=== PATIENT | female | born 1945 | race Caucasian/White ===

== ENCOUNTER → 2017-10-30 | Outpatient (CLI) | payer OTHER ==
[~2017-10-30] MED LIST: CELEBREX 200 M200 M1 PO; FLONASE 0.05%50 MCG NASAL; IMITREX 50 MG T50 MG PO; METROGEL55 GM TP; MINOCYCLINE HC100 M2 PO; NEURONTIN 300300 M1 PO; PREMARIN VAGI42.5 G1 TOP; TRAZODONE 150150 M1 PO; XANAX 0.5 MG0.5 M1 PO
== END ==
LOC: CAT 12:44
DX: Z13.6 Encounter for screening for cardiovascular disorders (principal)